=== PATIENT | female | born 1960 | race Caucasian/White ===

== ENCOUNTER → 2016-09-27 | Outpatient (CLI) | payer BC ==
--- NOTE | 2016-09-27 13:33 | MAMMOGRAPHY REPORT ---
UNILATERAL LEFT DIGITAL DIAGNOSTIC MAMMOGRAM TOMOSYNTHESIS WITH CAD AND TARGETED LEFT ULTRASOUND: 09/27/2016 CLINICAL HISTORY: The patient reports left nipple inversion for approximately 1.5 years. She also r eports whitish left nipple discharge on expression only. She denies any clear palpable lumps. She also had an area of redness with associated aching on her left breast last Sunday, which has nearly completely resolved. TECHNIQUE: Breast tomosynthesis in addition to standard 2D mammography was performed. Current study was also evaluated with a Computer Aided Detection (CAD) system. Left CC and MLO 2-D and tomosynth esis images were obtained. COMPARISON: Comparison is made to exams dated: 02/11/2015 mammogram, 02/15/2016 mammogram, 02/09/2014 mammogram, 02/06/2013 mammogram, 02/06/2012 mammogram, and 03/31/2010 mammogram - [facility]. BREAST COMPOSITION: The tissue of the left breast is heterogeneously dense, which may obscure small masses. FINDINGS: There are no suspicious masses, calcifications, or areas of architectural distortion note d in the left breast. There has been no significant interval change compared to prior exams. Targeted ultrasound was performed of the left subareolar region. An inverted left nipple is seen. There are no suspicious masses or other suspicious abnormalities seen within the left subareolar reg ion. Targeted ultrasound was also performed of the area of prior redness pointed out by the patient , in the left upper outer quadrant periareolar region. Sonographically normal tissue is seen in thi s region, without suspicious mass or other suspicious sonographic abnormality evident. IMPRESSION: ACR BI-RADS CATEGORY 2: BENIGN, TARGETED ULTRASOUND ACR BI-RADS CATEGORY 2: BENIGN No suspicious mammographic or sonographic abnormality seen within the left subareolar region to expl ain left nipple inversion/discharge or at the site of prior erythema. There is no mammographic or t argeted sonographic evidence of malignancy. Recommend clinical follow-up for left nipple inversion and discharge and improving left periareolar erythema. Also recommend routine bilateral screening m ammograms which are due January 2017. The patient has been verbally notified of the results. Approximately 10% of breast cancers are not detected with mammography. A negative mammographic repor t should not delay biopsy if a clinically suggestive mass is present. Padmini Madden M.D. ah/:09/27/2016 10:18:34 Concession Worker: Padmini Madden MD, [facility] letter sent: Normal 1/2 BI-RADS Code: ACR BI-RADS Category 2: Benign Ultrasound BI-RADS: ACR BI-RADS Category 2: Benign
== END | disposition home or self-care (01) ==
LOC: C.MAMM 09:40
PROVIDERS: ATTEND Surgery
DX: N64.59 Other signs and symptoms in breast (principal)

== ENCOUNTER → 2017-02-15 | Outpatient (CLI) | payer BC ==
--- NOTE | 2017-02-20 09:40 | MAMMOGRAPHY REPORT ---
BILATERAL DIGITAL SCREENING MAMMOGRAM TOMOSYNTHESIS WITH CAD: 02/15/2017 CLINICAL HISTORY: Routine screening. Patient has no complaints. TECHNIQUE: Breast tomosynthesis in addition to standard 2D mammography was performed. Current study was also evaluated with a Computer Aided Detection (CAD) system. COMPARISON: Comparison is made to exams dated: 09/27/2016 ultrasound, 09/27/2016 mammogram, 02/15/2016 ma mmogram, 02/11/2015 mammogram, 02/09/2014 mammogram, and 02/06/2013 mammogram - [facility]. BREAST COMPOSITION: The tissue of both breasts is heterogeneously dense, which may obscure small mas ses. FINDINGS: No suspicious masses, calcifications, or areas of architectural distortion are noted in ei ther breast. There has been no significant interval change compared to prior exams. IMPRESSION: ACR BI-RADS CATEGORY 1: NEGATIVE There is no mammographic evidence of malignancy. A 1 year screening mammogram is recommended. The pa tient will receive written notification of the results. Approximately 10% of breast cancers are not detected with mammography. A negative mammographic report should not delay biopsy if a clinically suggestive mass is present. Padmini Madden M.D. ah/:02/15/2017 15:14:14 Field Merchandiser: Lucinda REGAN(R)(M), [facility] letter sent: Normal 1/2 BI-RADS Code: ACR BI-RADS Category 1: Negative
== END | disposition home or self-care (01) ==
LOC: C.MAMM 10:19
PROVIDERS: ATTEND Family Medicine
DX: Z12.31 Encounter for screening mammogram for malignant neoplasm of breast (principal)

== ENCOUNTER 2018-10-19 08:49 | Observation (INO) ==
--- OUTSIDE RECORDS SUMMARY | 2018-10-19 08:52 | External Medical Summary | Continuity of Care Document ---
:1960 Author Name Michael Carmen, Provider Address Unavailable Unavailable , Care Team Providers Name Role Phone Unavailable Unavailable Unavailable MAAME JAIMES Unavailable Unavailable Unavailable Unavailable Unavailable Problems Encounter for routine gynecological examination (V72.31) (Z0 1.419) Osteoporosis (733.00) (M81.0) Non-smoker (V49.89) (Z78.9) Depression (311) (F32.9) Allergies and Adverse Reactions No Known Drug Allergies (Allergy) Medications Co Q 10 CAPS , M.D. Refills: 0 Fish Oil OIL , M.D. Refills: 0 Probiotic CAPS , M.D. Refills: 0 Vitamin D TABS , M.D. Refills: 0 Magnesium TABS , M.D. Refills: 0 Vitamin B-2 TABS , M.D. Refills: 0 Vitamin B-12 TABS , M.D. Refills: 0 Procedures Procedures not documented Immunizations Immunizations not documented Family History Grandmother Family history of Breast Cancer (V16.3) Status: Active Father Family history of Hypertension (V17.49) Status: Active Mother Family history of Multiple Sclerosis Status: Active Grandmother Family history of Colon Cancer (V16.0) Status: Active Plan of Treatment Planned Observations Planned Goals not documented Results No Known Results Results not documented Encounters Appointment; Fabiana Nicole M.D. 07-Jun-2018 9:20 Encounter Diagnosis: Problem not documented
[2018-10-19] MEDS ORDERED: ASPIRIN CHEW 324 MG PO STA (09:09)
[2018-10-19] MEDS ORDERED: NITROGLYCERIN SL 0.4 MG/TAB TAB SL PRN ×2 (09:09→12:06)
--- NOTE | 2018-10-19 09:17 | Emergency Department Note ---
History of Present Illness General Chief complaint: Chest Pain Stated complaint: CHEST PAIN Time Seen by Provider: 10/19/18 08:59 History of Present Illness Maximum Pain Intensity: 3 This 58-year-old female presents to ER with chief complaint of chest pain. The patient states that she has been getting intermittent chest pain since early July underneath her left breast. She states it feels like "her bra is too tight". She states it normally lasts minutes to hours. She normally notices it when she is swimming. Last night when she was just sitting watching TV at approximately 8 PM she got the same pain but it went down her left arm. She denies any pain radiating to the jaw. She states that it lasted 3 hours and then she went to bed. She states when she got up this morning she now has a mild pain in the left lower chest which she rates at a 2 out of 10. She does not describe it as pressure. She does admit that she is under a lot of stress lately. She denies any trauma to the area. She also states that she has had increased fatigue over the past few months. She states there is early CAD and a paternal grandfather in his 60s. The patient denies any personal history of CAD, hypertension, hyperlipidemia. The patient does not smoke. She is otherwise healthy. The patient states she took 2 baby aspirin last night. She has not taken anything today. Home Medications Home Medications Medication Instructions Recorded Confirmed Type ascorbic acid (vitamin C) [Vitamin 1,000 mg PO DAILY 10/19/18 10/19/18 History C] cholecalciferol (vitamin D3) 1,000 unit PO DAILY 10/19/18 10/19/18 History [Vitamin D3] cyanocobalamin (vitamin B-12) 1,000 mcg PO DAILY 10/19/18 10/19/18 History [Vitamin B-12] folic acid 1 mg PO DAILY 10/19/18 10/19/18 History magnesium 250 mg PO DAILY 10/19/18 10/19/18 History multivitamin 1 tab PO DAILY 10/19/18 10/19/18 History omega 9-tcg-blp-fish oil [Fish Oil] 1 cap PO DAILY 10/19/18 10/19/18 History aspirin [Ecotrin Low Strength] 81 mg PO QAM #30 tab 10/20/18 Rx Allergies Allergy/AdvReac Type Severity Reaction Status Date / Time No Known Allergies Allergy Unverified 10/19/18 09:54 Past Med/Surg History Medical History History of kidney stones (Chronic) Surgical History No history of previous surgery (Chronic) Family History Grandfather (Paternal) Coronary heart disease Grandmother (Paternal) Breast cancer Mother Multiple sclerosis Other Hypertension Social History Preferred Language: Thai Communication Ability: Effective Visual Impairment: No Limitations 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 Beliefs That Will Affect Care: None marital status: Current Living Situation: Spouse and Family Other Information That Helps Us Care for You: No Feels Safe at Home: Yes Safety Concerns: Feels Safe At This Time Smoking Status: Never smoker Do You Dip or Chew Tobacco: No Second Hand Exposure: No Tobacco Cessation Education Requested by Patient: No Hx Alcohol Use: Yes Hx Substance Use: No Review of Systems A total of 10 systems reviewed and were otherwise negative Physical Exam Vital Signs Vital Signs - 24 hr 10/19/18 08:54 Temperature 36.9 C Temperature Source Oral Sepsis Recent Fever Within 48 Hours No Sepsis Action Taken by Nursing No Action Required Pulse Rate 82 Respiratory Rate 20 Respiratory Effort / Characteristics Non-Labored Respiratory Depth Normal Blood Pressure 122/69 Blood Pressure Mean 86 Pulse Oximetry 100 Oxygen Delivery Method Room Air GENERAL: 58-year-old white female appears in no acute distress. MENTAL Status: Alert and oriented x3. EYES: PERRLA. EOMs intact. EARS: Canals clear. TMs without fluid level noted. NECK: Supple, no lymphadenopathy noted. No carotid bruits noted. LUNGS: Clear auscultation without wheezes rales or rhonchi. CARDIAC: Regular rate and rhythm without murmur. Pulses is full and equal throughout. CHEST WALL: Mild tenderness palpation over the anterior left lower ribs otherwise nontender. ABDOMEN: Positive bowel sounds all 4 quadrants. Soft, nontender to palpation without organomegaly or masses. LOWER EXTREMITIES: No cyanosis or edema noted. Calves are nontender to palpation. Course Administered Medications Discontinued Medications Ascorbic Acid (Vitamin C) 1,000 mg PO DAILY AMAURY Stop: 11/19/18 08:59 Last Admin: 10/20/18 08:12 Dose: 1,000 mg Documented by: [id number] Aspirin (Aspirin) 324 mg PO NOW STA Stop: 10/19/18 09:10 Last Admin: 10/19/18 09:28 Dose: 324 mg Documented by: [id number] Aspirin (Ecotrin Ectab) 81 mg PO QAM AMAURY Stop: 11/19/18 08:59 Last Admin: 10/20/18 08:12 Dose: 81 mg Documented by: [id number] Cyanocobalamin (Vitamin B-12) 1,000 mcg PO DAILY AMAURY Stop: 11/19/18 08:59 Last Admin: 10/20/18 08:12 Dose: 1,000 mcg Documented by: [id number] Fish Oil (Bloomer-3 (Purified Fish Oil)) 1 gm PO DAILY AMAURY Stop: 11/19/18 08:59 Last Admin: 10/20/18 08:12 Dose: 1 gm Documented by: [id number] Folic Acid (Folvite) 1 mg PO DAILY AMAURY Stop: 11/19/18 08:59 Last Admin: 10/20/18 08:12 Dose: 1 mg Documented by: [id number] Lactated Ringer's (Lr) 1,000 mls @ 80 mls/hr IV .[id number] AMAURY Stop: 10/20/18 00:14 Last Infusion: 10/20/18 00:45 Dose: 0 mls/hr Documented by: [id number] Admin: 10/19/18 12:15 Dose: 80 mls/hr Documented by: [id number] Multivitamins (Multivitamin Tab) 1 tab PO DAILY AMAURY Stop: 11/19/18 08:59 Last Admin: 10/20/18 08:12 Dose: 1 tab Documented by: [id number] Vitamin D (Vitamin D3) 1,000 units PO DAILY AMAURY Stop: 11/19/18 08:59 Last Admin: 10/20/18 08:12 Dose: 1,000 units Documented by: [id number] Medical Decision Making Differential Diagnosis Acute MT, muscular strain, angina, pneumonia, PE Medical Records Attestation: I reviewed the patient's medical records. Home Medications Current Medication List: was personally reviewed by me Laboratory Data Attestation: I reviewed the patient's lab results. Result diagrams: 10/19/18 09:27 10/19/18 09:27 Lab Results 10/19/18 10/19/18 10/19/18 Range/Units 09:27 09: 09:27 WBC 3.62 L (4.8-10.8) K/uL RBC 4.64 (4.2-5.4) M/uL Hgb 14.2 (12.0-16.0) g/dL Hct 40.2 (37-47) % MCV 86.6 (80-100) fL MCH 30.6 (25-34) pg MCHC 35.3 (32-36) g/dL RDW Std Deviation 40.9 (36.4-46.3) fL RDW Coeff of Nnamdi 12.8 (11.5-14.5) % Plt Count 241 (130-400) K/uL MPV 10.0 (7.4-10.4) fL Immature Gran % (Auto) 0.0 % Neut % (Auto) 58.0 % Lymph % (Auto) 32.3 % [place] % (Auto) 7.5 % Eos % (Auto) 1.4 % Baso % (Auto) 0.8 % Immature Gran # (Auto) 0.00 (0.00-0.02) K/uL Neut # (Auto) 2.10 (1.4-6.5) K/uL Lymph # (Auto) 1.17 L (1.2-3.4) K/uL [place] # (Auto) 0.27 (0.11-0.59) K/uL Eos # (Auto) 0.05 (0-0.5) K/uL Baso # (Auto) 0.03 (0-0.2) K/uL PT 10.5 (9.0-12.0) Seconds INR 1.0 (0.9-1.1) APTT 26.1 (21.0-31.0) Seconds PTT Ratio 1.0 Sodium 142 (136-145) mmol/L Potassium 4.1 (3.5-5.1) mmol/L Chloride 108 H (98-107) mmol/L Carbon Dioxide 27 (21-32) mmol/L Anion Gap 7.0 (3-11) BUN 15 (7-18) mg/dl Creatinine 0.89 (0.6-1.2) mg/dl Est Cr Clr Drug Dosing 72.4 ml/min Est GFR ( Amer) 83.4 Est GFR (Non-Af Amer) 71.9 BUN/Creatinine Ratio 17.2 (10-20) Glucose 115 H (70-99) mg/dl Calcium 9.3 (8.5-10.1) mg/dl Total Bilirubin 0.7 (0.2-1) mg/dl AST 14 L (15-37) U/L ALT 19 (12-78) U/L Alkaline Phosphatase 69 (45-117) U/L CK-MB (CK-2) < 1.0 (0.5-3.6) ng/ml Troponin I < 0.015 (0-0.045) ng/ml Total Protein 7.2 (6.4-8.2) gm/dl Albumin 3.8 (3.4-5.0) gm/dl Globulin 3.4 (2.5-4.0) gm/dl Albumin/Globulin Ratio 1.1 (0.9-2) Lipase 139 (73-393) U/L Imaging Data Attestation: I personally reviewed and interpreted this imaging study as follows: My Impression: No acute process noted Radiologist's Impression: XR chest 1V portable CLINICAL HISTORY: Chest Pain COMPARISON STUDY: No previous studies for comparison. FINDINGS: The bones soft tissues and hemidiaphragms are normal. The cardiomediastinal silhouette is normal. The lungs are clear. The pulmonary vasculature is normal. IMPRESSION: Negative chest. The above report was generated using voice recognition software. It may contain grammatical, syntax or spelling errors. Electronically signed by: Kelton Munoz M.D. 10/19/2018 9:27 AM ECG Data Indication: chest pain Rate (beats per minute): 83 Rhythm: normal sinus Findings: + ST depression Comparison ECG Date: no prior available Blood Pressure Blood Pressure Findings: Normal blood pressure MDM Narrative The patient was evaluated. IV access was obtained. The patient was placed on a manager steel and continuous pulse ox. Patient was given nitroglycerin sublingual. She was also given 324 mg of chewable aspirin. CBC and differential, renal profile, LFTs and lipase, coags, troponin, CK-MB were ordered. EKG was ordered interpreted as above with ST depressions noted in the inferior leads. No prior is available for comparison.. Chest x-ray was ordered interpreted as above without any acute findings. When the nurse went to give the patient the nitroglycerin she stated that she was not in any pain and refused the nitro. Labs are reviewed and were unremarkable. Troponin was within normal limits. The patient's case was discussed with Dr. Guerrier who agreed with treatment plan. I informed the patient of all findings and discussed with her admission for cardiac rule out and she is in agreement. [facility] hospitalist was consulted for admission. Impression & Plan Chest pain Discharge Plan Visit Data *Final* Discharge Date/Time: 10/19/18 11:48 Chief Complaint: Chest Pain Stated Complaint: CHEST PAIN ED Provider: Fabien Guerrier ED Midlevel Provider: Natalie Munoz Discharge Problem: Chest pain Patient Disposition: Admitted As Inpatient Discharge Instructions Interventions: ED Discharge Assessment Last Done: 10/19/18 11:48 Discharge Problem: Chest pain Qualifiers: Chest pain type: unspecified Qualified Code(s): R07.9 - Chest pain, unspecified
--- NOTE | 2018-10-19 09:28 | XRay Report ---
XR chest 1V portable CLINICAL HISTORY: Chest Pain COMPARISON STUDY: No previous studies for comparison. FINDINGS: The bones soft tissues and hemidiaphragms are normal. The cardiomediastinal silhouette is n ormal. The lungs are clear. The pulmonary vasculature is normal. IMPRESSION: Negative chest. The above report was generated using voice recognition software. It may contain grammatical, syntax or spelling errors. Electronically signed by: Kelton Munoz M.D. 10/19/2018 9:27 AM
[2018-10-19 09:37] LABS: Basophils # (auto) 0.03 K/uL (0-0.2); Basophils % (auto) 0.8 %; Eosinophils # (auto) 0.05 K/uL (0-0.5); Eosinophils % (auto) 1.4 %; Hematocrit (blood only) 40.2 % (37-47); Hemoglobin 14.2 g/dL (12.0-16.0); Lymphocytes # (auto) 1.17 K/uL (1.2-3.4); Lymphocytes % (auto) 32.3 %; Mean Corpuscular Hgb Conc 35.3 g/dL (32-36); Mean Corpuscular Volume 86.6 fL (80-100); Monocytes # (auto) 0.27 K/uL (0.11-0.59); Monocytes % (auto) 7.5 %; Platelet Count 241 K/uL (130-400); RDW Coefficient of Variation 12.8 % (11.5-14.5); RDW Standard Deviation 40.9 fL (36.4-46.3); Red Blood Count 4.64 M/uL (4.2-5.4); White Blood Count 3.62 K/uL (4.8-10.8)
[2018-10-19 09:53] LABS: Alanine Aminotransferase 19 U/L (12-78); Albumin Level 3.8 gm/dl (3.4-5.0); Aspartate Aminotransferase 14 U/L (15-37); BUN Creatinine Ratio 17.2 (10-20); Blood Urea Nitrogen 15 mg/dl (7-18); Calcium 9.3 mg/dl (8.5-10.1); Carbon Dioxide 27 mmol/L (21-32); Chloride 108 mmol/L (98-107); Creatinine Clr Calc Pharmacy 72.4 ml/min; Est GFR (African American) 83.4; Est GFR (Non-African American) 71.9; Glucose 115 mg/dl (70-99); Potassium 4.1 mmol/L (3.5-5.1); Sodium 142 mmol/L (136-145)
[2018-10-19 09:58] LABS: Albumin Globulin Ratio 1.1 (0.9-2); Alkaline Phosphatase 69 U/L (45-117); Bilirubin,Total 0.7 mg/dl (0.2-1); Creatine Kinase MB < 1.0 ng/ml (0.5-3.6); Globulin 3.4 gm/dl (2.5-4.0); Total Protein 7.2 gm/dl (6.4-8.2); Troponin I < 0.015 ng/ml (0-0.045)
[2018-10-19 10:01] LABS: Partial Thromboplastin Time 26.1 Seconds (21.0-31.0); Prothrombin Time 10.5 Seconds (9.0-12.0)
[2018-10-19] MEDS ORDERED: KETOROLAC TROMETHAMINE 15 MG/ML VIAL IV PRN (11:33)
[2018-10-19] MEDS ORDERED: LACTATED RINGER'S 1,000 ML IV SCH (11:45)
--- NOTE | 2018-10-19 11:56 | History & Physical Report ---
Date of Service October 19, 2018 Assessment & Plan (1) Chest pain: Pt presented to ER with c/o CP. Reported left CP with swimming x 3 months with pain for 3 hours last night that started when sitting. Denies SOB, dizziness, diaphoresis, N/V. In ER pt vitals stable. Negative initial troponin. EKG: NSR with ST depression inferior leads. (unable to view EKG from 2013 to compare). Chest pain R/O ACS. Pt without significant risk factors other than FH CAD in grandfather. Suspect musculoskeletal etiology as has reproducible pain to left chest and left axilla on palpation -In ER pt is CP free. Was given 324mg ASA. Pt did not require nitro or other medication -Pending d-dimer r/o PE -Will obtain TSH -Repeat EKG in am -Will trend troponin -Echo -Lipid panel in am -Toradol prn pain -If troponins negative and has benign hospital course would recommend out patient stress test DVT Prophylaxis -SCDs Follows with Dr Fabiana Garcia for routine care Pt was seen with Dr Healy. See addendum History of Present Illness Chief Complaint: CP Primary Care Provider: Fabiana Garcia, Pt is 58 y/o F with PMH kidney stones presented to ER with c/o CP. Pt reports 3 months ago was on airplane when developed left chest pain during the flight which then resolved after flight. States for past 3 months has been having intermittent left chest pain that occurs with swimming. Last night was sitting watching TV when developed left anterior chest pain with radiation to left axilla that lasted approx 3 hours. During that time it felt better to shallow breath but denies SOB. Denies dizziness, syncope, palpitation, N/V. Did swim yesterday. Reports is able to bicycle and walk without any CP or SOB. Pt reports has been having fatigue for past couple of months and needs to nap in the afternoon. Denies fever/chills, diaphoresis, N/V/D/C, LOWE, vision changes, neck pain, orthopnea, cough, sore throat, choking, otalgia, rhinorrhea, abdominal pain, paresthesias, weakness, extremity weakness, extremity edema, rashes, urinary symptoms. Allergies Allergy/AdvReac Type Severity Reaction Status Date / Time No Known Allergies Allergy Unverified 10/19/18 09:54 Home Medications Home Medications Medication Instructions Recorded Confirmed Type ascorbic acid (vitamin C) [Vitamin 1,000 mg PO DAILY 10/19/18 10/19/18 History C] cholecalciferol (vitamin D3) 1,000 unit PO DAILY 10/19/18 10/19/18 History [Vitamin D3] cyanocobalamin (vitamin B-12) 1,000 mcg PO DAILY 10/19/18 10/19/18 History [Vitamin B-12] folic acid 1 mg PO DAILY 10/19/18 10/19/18 History magnesium 250 mg PO DAILY 10/19/18 10/19/18 History multivitamin 1 tab PO DAILY 10/19/18 10/19/18 History omega 8-hia-baj-fish oil [Fish Oil] 1 cap PO DAILY 10/19/18 10/19/18 History Past Med/Surg History Medical History History of kidney stones (Chronic) Surgical History No history of previous surgery (Chronic) Family History Grandfather (Paternal) Coronary heart disease Grandmother (Paternal) Breast cancer Mother Multiple sclerosis Other Hypertension Social History Preferred Language: Palestinian Communication Ability: Effective Visual Impairment: No Limitations Hearing Ability: Normal Bottom Filler Required: No Beliefs That Will Affect Care: None marital status: Current Living Situation: Spouse and Family Other Information That Helps Us Care for You: No Feels Safe at Home: Yes Safety Concerns: Feels Safe At This Time Smoking Status: Never smoker Do You Dip or Chew Tobacco: No Second Hand Exposure: No Tobacco Cessation Education Requested by Patient: No Hx Alcohol Use: Yes Hx Substance Use: No Review of Systems Review of Systems: All systems reviewed & are unremarkable except as noted in HPI & below Physical Exam Physical Exam: General: no distress, WDWN Head: normocephalic, atraumatic Eyes: PERRL, conjunctiva non-injected, anicteric ENT: normal inspection external ears, nose, mucous membranes moist Neck: supple, trachea midline Lungs: clear, no respiratory distress, no wheezing/rhonchi/rales CV: RRR, no murmur, no pretibial edema Chest: No rashes, +reproducible pain to left anterior chest and left axilla along pectoralis muscle Abd: normal BS, soft, non-tender Ext: no cyanosis, no calf tenderness Neuro: A&O x 3, no focal deficits noted, normal affect Skin: warm, dry Results & Data Vital Signs (Past 12 Hours) Vital Signs Temp Pulse Resp BP Pulse Ox 10/19/18 11:48 70 16 113/70 100 10/19/18 10:27 69 22 116/74 99 10/19/18 10:20 70 22 99 10/19/18 10:10 71 24 99 10/19/18 10:00 70 23 98 10/19/18 09:50 73 23 97 10/19/18 09:40 75 24 98 10/19/18 09:30 76 17 10/19/18 09:27 79 15 108/64 10/19/18 09:20 78 13 10/19/18 09:16 77 19 10/19/18 08:54 36.9 C 82 20 122/69 100 Laboratory Results Short CBC 10/19/18 Range/Units 09:27 WBC 3.62 L (4.8-10.8) K/uL Hgb 14.2 (12.0-16.0) g/dL Hct 40.2 (37-47) % Plt Count 241 (130-400) K/uL BMP 10/19/18 09:27 Sodium 142 Potassium 4.1 Chloride 108 H Carbon Dioxide 27 BUN 15 Creatinine 0.89 Glucose 115 H Calcium 9.3 Cardiac Enzymes 10/19/18 Range/Units 09:27 CK-MB (CK-2) < 1.0 (0.5-3.6) ng/ml Troponin I < 0.015 (0-0.045) ng/ml Liver Function 10/19/18 Range/Units 09:27 Total Bilirubin 0.7 (0.2-1) mg/dl AST 14 L (15-37) U/L ALT 19 (12-78) U/L Alkaline Phosphatase 69 (45-117) U/L Albumin 3.8 (3.4-5.0) gm/dl Diagnostic Findings CXR: IMPRESSION: Negative chest. ECG Rate (beats per minute): 83 Rhythm: normal sinus Findings: + nonspecific-ST abn (ST depression inferior) Supervising Physician Co-Signing Physician Notes Attending addendum: Patient seen and examined, care coordinated with Nimco Guerra PA-C, This is a 58-year-old female with no significant past medical history, presents with almost 4 weeks of pain on the left chest wall, most prominent with exertion/left arm movement/swimming no complain of shortness of breath dyspnea on exertion/ no chest pain with any other activity-walking /running Last night started to have ongoing pain on the left chest wall rdiating to the left arm, no complain of shortness of breath but no nausea, no diaphoresis, no dyspnea In the ER patient was given sublingual nitro, aspirin 324 mgX1 During our interview patient was chest pain-free, Reports of chronic fatigue for the past few weeks Lab work was unrevealing, troponin negative, with normal CBC and electrolytes EKG showed subtle ST T wave changes on the inferior leads II, III, aVF, no reciprocal changes noted on anterior and lateral leads No prior EKG was available to compare Physical exam, as documented by Laly Guerra PA-C Vitals stable Patient will be observed in medical telemetry, to rule out ACS, Presents with atypical chest pain for angina, most likely musculoskeletal in origin We will check serial troponin, first set negative, resting echo ordered Possible discharge after 24-hour observation tomorrow, if all lab work imaging comes to be negative She will benefit with outpatient cardiac stress test Virgen Healy MD (1) Chest pain Chest pain type: unspecified Qualified Code(s): R07.9 - Chest pain, unspecified
[2018-10-19] MEDS ORDERED: MAGNESIUM HYDROXIDE SUSP 30 ML UDC PO PRN (12:06)
[2018-10-19] MEDS ORDERED: POLYETHYLENE (MIRALAX) 17 GM PACK PO PRN (12:06)
[2018-10-19] MEDS ORDERED: ALUMINUM/MAGNESIUM SUSP 30 ML UDC PO PRN (12:06)
[2018-10-19] MEDS ORDERED: ENOXAPARIN INJ 40 MG/0.4 ML SYR SQ SCH (12:06)
[2018-10-19] MEDS ORDERED: ACETAMINOPHEN 325 MG TAB PO PRN (12:06)
[2018-10-19] MEDS ORDERED: ONDANSETRON INJ 2 MG/ML 2 ML VIAL IV PRN (12:06)
[2018-10-19 12:48] LABS: Estimated Average Glucose 114 mg/dl; Hemoglobin A1C 5.6 % (4.5-5.6)
[2018-10-19 12:51] LABS: D Dimer < 190 ug/L FEU (0-500)
[2018-10-19 13:03] LABS: Magnesium 2.4 mg/dl (1.8-2.4)
[2018-10-20 07:17] LABS: Chol HDL Ratio 2; Cholesterol 144 mg/dl (0-200); HDL Cholesterol 60 mg/dl; LDL Cholesterol Calculated 73 mg/dl; Triglycerides 53 mg/dl (0-150); VLDL Cholesterol 11 mg/dl
[2018-10-20] MEDS ORDERED: MULTIVITAMIN TAB PO SCH (09:00)
[2018-10-20] MEDS ORDERED: ASPIRIN 81 MG ECTAB PO SCH (09:00)
[2018-10-20] MEDS ORDERED: CHOLECALCIFEROL 1,000 UNITS TAB PO SCH (09:00)
[2018-10-20] MEDS ORDERED: CYANOCOBALAMIN 500 MCG TABLET (VITAMIN B-12) PO SCH (09:00)
[2018-10-20] MEDS ORDERED: FOLIC ACID 1 MG TAB PO SCH (09:00)
[2018-10-20] MEDS ORDERED: ASCORBIC ACID 500 MG TAB PO SCH (09:00)
[2018-10-20] MEDS ORDERED: OMEGA-3 (PURIFIED FISH OIL) 1 GM CAP PO SCH (09:00)
--- NOTE | 2018-10-20 11:06 | Hospitalist Progress Note ---
Date of Service October 20, 2018 Assessment & Plan (1) Chest pain: Pt presented to ER with with left sided CP with swimming x 3 months, but last night occurred at rest Troponin x3 negative EKG showed non specific ST changes CXR negative ECHO showed no wall monition abnormality with EF 55-60% Case discussed with cardiology (No official consult place) and EKG reviewed with cardiology Pt would like to go home today Since pt is asymptomatic, troponin negative and ECHO normal LDL 73, total cholesterol 144 and HDL 60 Will need to arrange for outpatient stress test Continue aspirin 81 mg if able to tolerate (Side effect discussed with patient such as GI symptoms and abnormal bleeding) DVT Prophylaxis On SCDs Disposition Follows with PCP Dr Fabiana Garcia Will need to arrange for outpatient stress test Subjective Pt was seen and examined Lying in bed with no distress Pt said she feels fine She has been working in the hallway with no chest discomfort Pt said that she has been free of chest pain Pt said that she swims about 1/2 a miles Denies any chest pain, palpitation, dizziness and SOB Physical Exam Physical Exam: General- No acute distress Head- atraumatic Eyes- PERRL, EOMI, ENT- oropharynx clear Neck- supple, no JVD Lungs- clear to auscultation Heart- regular rhythm; no murmur Abdomen- normal bowel sounds, soft, nontender Extremities- no calf tenderness Neuro- alert, oriented x 3; PERRL, EOMI; no facial palsy; no dysarthria Skin- warm & dry Results & Data Vital Signs (Past 12 Hours) Vital Signs Temp Pulse Pulse Resp BP BP Pulse Ox 10/20/18 10:55 36.4 C L 65 17 98/58 L 103/66 96 10/20/18 08:00 69 10/20/18 07:54 36.4 C L 65 17 103/66 96 10/20/18 03:00 36.3 C L 64 18 93/56 L 96 10/20/18 00:21 37 C 69 18 98/58 L 95 10/19/18 23:36 69 (1) Chest pain Chest pain type: unspecified Qualified Code(s): R07.9 - Chest pain, unspecified
--- NOTE | 2018-10-21 08:17 | Discharge Summary ---
Date of Service October 20, 2018 Admission HPI Per Admitting Provider Pt is 58 y/o F with PMH kidney stones presented to ER with c/o CP. Pt reports 3 months ago was on airplane when developed left chest pain during the flight which then resolved after flight. States for past 3 months has been having intermittent left chest pain that occurs with swimming. Last night was sitting watching TV when developed left anterior chest pain with radiation to left axilla that lasted approx 3 hours. During that time it felt better to shallow breath but denies SOB. Denies dizziness, syncope, palpitation, N/V. Did swim yesterday. Reports is able to bicycle and walk without any CP or SOB. Pt reports has been having fatigue for past couple of months and needs to nap in the afternoon. Denies fever/chills, diaphoresis, N/V/D/C, LOWE, vision changes, neck pain, orthopnea, cough, sore throat, choking, otalgia, rhinorrhea, abdominal pain, paresthesias, weakness, extremity weakness, extremity edema, rashes, urinary symptoms. Admission Exam Per Admitting Provider General: no distress, WDWN Head: normocephalic, atraumatic Eyes: PERRL, conjunctiva non-injected, anicteric ENT: normal inspection external ears, nose, mucous membranes moist Neck: supple, trachea midline Lungs: clear, no respiratory distress, no wheezing/rhonchi/rales CV: RRR, no murmur, no pretibial edema Chest: No rashes, +reproducible pain to left anterior chest and left axilla along pectoralis muscle Abd: normal BS, soft, non-tender Ext: no cyanosis, no calf tenderness Neuro: A&O x 3, no focal deficits noted, normal affect Skin: warm, dry Principal Diagnosis Chest pain Discharge Exam General- No acute distress Head- atraumatic Eyes- PERRL, EOMI, ENT- oropharynx clear Neck- supple, no JVD Lungs- clear to auscultation Heart- regular rhythm; no murmur Abdomen- normal bowel sounds, soft, nontender Extremities- no calf tenderness Neuro- alert, oriented x 3; PERRL, EOMI; no facial palsy; no dysarthria Skin- warm & dry Discharge Data Allergies Allergy/AdvReac Type Severity Reaction Status Date / Time No Known Allergies Allergy Unverified 10/19/18 09:54 Consultations 10/19/18 11:04 ED Decision to Admit Stat Ordered Studies XR chest 1V portable CLINICAL HISTORY: Chest Pain COMPARISON STUDY: No previous studies for comparison. FINDINGS: The bones soft tissues and hemidiaphragms are normal. The cardiomediastinal silhouette is normal. The lungs are clear. The pulmonary vasculature is normal. IMPRESSION: Negative chest. The above report was generated using voice recognition software. It may contain grammatical, syntax or spelling errors. Electronically signed by: Kelton Munoz M.D. 10/19/2018 9:27 AM Dictated: 10/19/18926 Transcribed: 10/19/18926 Hospital Course (1) Chest pain: Pt presented to ER with with left sided CP with swimming x 3 months, but last night occurred at rest Troponin x3 negative EKG showed non specific ST changes CXR negative ECHO showed no wall monition abnormality with EF 55-60% Case discussed with cardiology (No official consult place) and EKG reviewed with cardiology Pt would like to go home today Since pt is asymptomatic, troponin negative and ECHO normal LDL 73, total cholesterol 144 and HDL 60 Will need to arrange for outpatient stress test Continue aspirin 81 mg if able to tolerate (Side effect discussed with patient such as GI symptoms and abnormal bleeding) DVT Prophylaxis On SCDs Disposition Follows with PCP Dr Fabiana Garcia Will need to arrange for outpatient stress test Total Time Total Time Spent Total Time Spent (In Minutes): 35 minutes Total Time Includes: Examination of the Patient, Discharge Planning, Medication Reconciliation, Communication With Other Providers and Other Discharge Plan Discharge Items Patient Disposition: Home - Self-Care Reason For Visit: CHEST PAIN Discharge Diagnosis: Chest pain Discharge Goals: Decrease discomfort, Improve disease control, Increase independence and Improve nutritional status Activity: Resume your previous activity Non-emergency contact: Primary Care Provider Call non-emergency contact if: you have any medication questions Follow-up/Referrals: Fabiana Garcia DO [Primary Care Provider] - Diet: Heart Healthy Addtl Provider Instructions: Please call your primary care physician within 1 week to schedule for a follow up appointment Your primary care physician will arrange for outpatient stress test Seek medical attention if chest pain reoccurs and lasts longer. Prescriptions: New aspirin [Ecotrin Low Strength] 81 mg Tablet,Delayed Release (Dr/Ec) 81 mg PO QAM Qty: 30 RF: 0 Continued multivitamin Tablet 1 tab PO DAILY RF: 0 ascorbic acid (vitamin C) [Vitamin C] 1,000 mg Tablet Extended Release 1,000 mg PO DAILY RF: 0 cyanocobalamin (vitamin B-12) [Vitamin B-12] 1,000 mcg Tablet 1,000 mcg PO DAILY RF: 0 folic acid 1 mg Tablet 1 mg PO DAILY RF: 0 cholecalciferol (vitamin D3) [Vitamin D3] 1,000 unit Tablet 1,000 unit PO DAILY RF: 0 omega 7-ahh-vgo-fish oil [Fish Oil] 1,000 mg (120 mg-180 mg) Capsule 1 cap PO DAILY RF: 0 magnesium 250 mg Tablet 250 mg PO DAILY RF: 0 Stand-Alone Forms: Call Back Authorization, [facility]/Other Patient Handouts: Test Stress Exercise, Test Nuclear Stress, Echo Dobutamine Stress Discharge Orders: Discharge Order (Routine); Ordered 10/20/18 Ordered By: Allison Rome Admission Data Admit Date/Time: 10/19/18 11:49 Attending Provider: Allison Rome Admit Provider: Virgen Healy Primary Care Provider: Fabiana Garcia Other Providers: Allison Rome Service: Telemetry Medical Other Interventions: Discharge Summary Assessment (RN) Last Done: 10/20/18 10:55 DC Date/Time DO NOT enter until pt leaves facility: 10/20/18 12:20
== END 2018-10-20 12:20 | disposition home or self-care (01) ==
LOC: 2S 08:49 → ED 08:49 → 2S 11:48 → SUATTDRO 11:49